=== PATIENT | male | born 1990 | race African-American/Black ===

== ENCOUNTER 2017-04-22 23:37 | Emergency (ER) | payer SELFPAY ==
[2017-04-22 23:46] VITALS: BP 131/85; PULSE 66; TEMP 98.6; BMI 19.8
[2017-04-23] MEDS ORDERED: KETOROLAC TROMETHAMINE 30 MG/1 ML VIAL IM ONE (01:43)
[2017-04-23] MEDS ORDERED: CLINDAMYCIN HCL 300 MG CAPSULE PO ONE (01:43)
--- NOTE | 2017-04-23 01:51 | PDOC ---
History of Present Illness - General Chief Complaint: Toothache Stated Complaint: TOOTH PAIN Time Seen by Provider: 04/23/17 01:09 History Source: Patient Exam Limitations: No Limitations - History of Present Illness Initial Comments: 04/23/17 01:44 27yo Male patient presents to ED c/o dental pain which began with sudden onset. Patient states tooth crack a while ago, but experienced severe pain with associated headache today. He denies any other complaints at this time. Timing/Duration: getting worse Severity: severe Modifying Factors: worse with: cold therapy, eating, immobilization, medication , movement, rest, other Associated Symptoms: reports: headaches. denies: denies symptoms, chest pain, cough, diaphoresis, fever/chills, loss of appetite, malaise, nausea/vomiting, rash, seizure, shortness of breath, syncope, weakness, other Past History - Travel Traveled outside of the country in the last 30 days: No Close contact w/someone who was outside of country & ill: No - Past Medical History Allergies/Adverse Reactions: Allergies Allergy/AdvReac Type Severity Reaction Status Date / Time No Known Allergies Allergy Verified 04/22/17 23:46 Home Medications: Ambulatory Orders Clindamycin [Cleocin -] 300 mg PO BID #20 capsule 04/23/17 Ibuprofen 800 mg PO Q8H PRN #20 tablet 04/23/17 Oxycodone HCl/Acetaminophen [Endocet 7.5-325 mg Tablet] 1 each PO Q4H PRN #12 tablet MDD 6 tabs 04/23/17 Other medical history: denies - Psycho/Social/Smoking Cessation Hx Suicidal Ideation: No Smoking History: Never smoked Review of Systems - Review of Systems Able to Perform ROS?: Yes Is the patient limited [place] proficient: No Constitutional: No: Chills, Fever Cardiac (ROS): No: Chest Pain All Other Systems: Reviewed and Negative *Physical Exam - Vital Signs Last Vital Signs Temp Pulse Resp BP Pulse Ox 98.6 F 66 18 131/85 99 04/22/17 23:43 04/22/17 23:43 04/22/17 23:43 04/22/17 23:43 04/22/17 23:43 - Physical Exam General Appearance: Yes: Nourished, Appropriately Dressed, Mild Distress. No: Moderate Distress HEENT: positive: EOMI, PALOMO, Normal ENT Inspection, Normal Voice, Symmetrical, TMs Normal, Pharynx Normal, Other (#15 Tooth partially cracked with decay and exposed root. Mild gum line inflammation noted. No odor to breath.) Neck: positive: Trachea midline, Normal Thyroid, Supple. negative: Lymphadenopathy (R), Lymphadenopathy (L), Tender lateral, Tender midline Respiratory/Chest: positive: Lungs Clear, Normal Breath Sounds. negative: Chest Tender, Respiratory Distress, Accessory Muscle Use, Labored Respiration, Rapid RR Cardiovascular: positive: Regular Rhythm, Regular Rate Gastrointestinal/Abdominal: positive: Normal Bowel Sounds, Soft. negative: Distended, Guarding, Rebound, Tenderness, Hernia, Mass Musculoskeletal: positive: Normal Inspection. negative: CVA Tenderness, Vertebral Tenderness Extremity: positive: Normal Capillary Refill, Normal Inspection, Normal Range of Motion. negative: Pedal Edema, Swelling, Calf Tenderness, Erythema, Inflammation Integumentary: positive: Normal Color, Dry, Warm. 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 NML intact, Fully Oriented, Alert, Normal Mood/ Affect, Normal Response, Motor Strength 5/5 *DC/Admit/Observation/Transfer Diagnosis at time of Disposition: Pain due to dental caries - Discharge Dispostion Disposition: HOME Condition at time of disposition: Stable Admit: No - Prescriptions Prescriptions: Clindamycin [Cleocin -] 300 mg PO BID #20 capsule Oxycodone HCl/Acetaminophen [Endocet 7.5-325 mg Tablet] 1 each PO Q4H PRN #12 tablet MDD 6 tabs PRN Reason: Severe Pain Ibuprofen 800 mg PO Q8H PRN #20 tablet PRN Reason: Mild Pain - Patient Instructions Printed Discharge Instructions: DI for Tooth Decay, DI for Dental Pain Additional Instructions: Follow up with your dentist or [facility] for evaluation. Take medications as prescribed. Do not drive, drink alcohol, or operate heavy machinery while taking Endocet. Print Language: [place]HT[place]
[2017-04-23] MEDS ORDERED: CLINDAMYCIN HCL 150 MG CAPSULE (FP) ONE (02:09)
[2017-04-23] MEDS ORDERED: KETOROLAC TROMETHAMINE 30 MG/1 ML VIAL ONE (02:11)
== END 2017-04-23 02:47 | disposition home or self-care (01) ==
LOC: JER 23:37
PROC: 3E0233Z Introduction of Anti-inflammatory into Muscle, Percutaneous Approach (ICD-10-PCS; principal; 2017-04-22)
DX: K02.9 Dental caries, unspecified (principal)
CPT/HCPCS: 99282-25